=== PATIENT | female | born 1975 | race Caucasian/White ===

== ENCOUNTER → 2018-09-28 | Outpatient (CLI) | payer MEDICARE, OTHER ==
--- NOTE | 2018-09-29 08:39 | XR ---
Limited cervical spine HISTORY: Arthrodesis status, Z 98.1, postop pain with arm and hand numbness 3 views of the cervical spine No comparisons Metallic post is present through the tongue. Patient is status post anterior cervical fusion and disc ectomy as well as intervertebral disc replacement at C3-4, block placement at the level of C5 slightl y towards the left of midline. The metallic block extends from the inferior margin of C4 to the super ior margin of C6. There is some reversal of the normal cervical lordosis which is likely postoperativ e. Suspect there is an anterolisthesis at C5-6 although the posterior margin of C5 is not well-define d due to postop state. Anterior screws extend to the posterior margin of the vertebral bodies at C4 a nd C6. Anterior screws also present C3. Some loss of disc height present C6-7. Indeterminate crescent ic calcification present anterior to the C6 vertebral body extending to the C6-7 disc space level. IMPRESSION: Neurosurgical follow-up as described. Suspect listhesis is present, correlate with postop erative exam.
== END ==
LOC: RADXRMAIN 15:58
PROVIDERS: ATTEND Neurological Surgery
DX: Z09 Encounter for follow-up examination after completed treatment for conditions other than malignant neoplasm (principal); Z98.1 Arthrodesis status
CPT/HCPCS: 72040

== ENCOUNTER 2018-11-30 00:24 | Emergency (ER) | payer MEDICARE, OTHER ==
--- NOTE | 2018-11-30 01:26 | XR ---
EXAM: XR Chest, 2 Views CLINICAL HISTORY: Pain TECHNIQUE: Frontal and lateral views of the chest. COMPARISON: No relevant prior studies available. FINDINGS: Lungs: Unremarkable. No consolidation. Pleural space: Unremarkable. No pneumothorax. Heart: Unremarkable. No cardiomegaly. Mediastinum: Unremarkable. Bones/joints: Unremarkable. IMPRESSION: No acute abnormality
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
[2018-11-30 01:48] LABS: Basophils # (A) 0.1 k/uL (0-0.2); Basophils % (A) 1 %; Eosinophils # (A) 0.8 k/uL (0-0.7); Eosinophils % (A) 6 %; HCT 43.3 % (34.0-46.0); HGB 13.9 gm/dL (11.4-16.0); Lymphocytes # (A) 3.2 k/uL (1.0-4.8); Lymphocytes % (A) 25 %; MCH 28.8 pg (25.0-35.0); MCHC 32.1 g/dL (31.0-37.0); MCV 89.8 fL (80.0-100.0); Mean Platelet Volume 8.1; Monocytes # (A) 0.8 k/uL (0-1.0); Monocytes % (A) 6 %; Neutrophils # (A) 7.9 k/uL (1.3-7.7); Neutrophils % (A) 60 %; Platelet Count 275 k/uL (150-450); RBC 4.82 m/uL (3.80-5.40); RDW 14.3 % (11.5-15.5); WBC 13.2 k/uL (3.8-10.6)
[2018-11-30 01:53] LABS: ALT 25 U/L (9-52); AST 17 U/L (14-36); Alkaline Phosphatase 103 U/L (38-126); Anion Gap 10 mmol/L; Blood Urea Nitrogen 17 mg/dL (7-17); Calcium 8.9 mg/dL (8.4-10.2); Carbon Dioxide 23 mmol/L (22-30); Chloride 106 mmol/L (98-107); Glucose 97 mg/dL (74-99); Lipase 98 U/L (23-300); Potassium 3.8 mmol/L (3.5-5.1); Sodium 139 mmol/L (137-145); Total Bilirubin 0.3 mg/dL (0.2-1.3); Total Protein 7.3 g/dL (6.3-8.2)
[2018-11-30 02:02] LABS: D-Dimer 0.36 mg/L FEU (<0.60); INR 0.9 (<1.2); Prothrombin Time 9.4 sec (9.0-12.0)
[2018-11-30] MEDS ORDERED: HYDROcodone/APAP 5-325MG 1 EACH TAB PO STA (02:09)
[2018-11-30 02:26] LABS: Partial Thromboplastin Time 21.6 sec (22.0-30.0)
[2018-11-30 03:03] VITALS: RESP 18
[2018-11-30 04:15] VITALS: BP 143/103; PULSE 82; TEMP 98.1
== END 2018-11-30 03:48 | disposition home or self-care (01) ==
LOC: EC 00:24
DX: M54.12 Radiculopathy, cervical region (principal); R07.9 Chest pain, unspecified; D72.829 Elevated white blood cell count, unspecified; F17.200 Nicotine dependence, unspecified, uncomplicated; Z88.0 Allergy status to penicillin; Z88.2 Allergy status to sulfonamides; Z88.8 Allergy status to other drugs, medicaments and biological substances; Z86.73 Personal history of transient ischemic attack (TIA), and cerebral infarction without residual deficits; Z87.828 Personal history of other (healed) physical injury and trauma; Z98.890 Other specified postprocedural states; W10.9XXA Fall (on) (from) unspecified stairs and steps, initial encounter; Y93.01 Activity, walking, marching and hiking; Y92.009 Unspecified place in unspecified non-institutional (private) residence as the place of occurrence of the external cause
CPT/HCPCS: 36415; 71046; 80053; 83690; 83735; 84484; 85025; 85379; 85610; 85730; 93005; 99285

== ENCOUNTER 2019-04-05 12:53 | Emergency (ER) | payer OTHER ==
[2019-04-05 13:02] VITALS: RESP 18
[2019-04-05] MEDS ORDERED: SODIUM CHLORIDE 0.9% 1,000 ML IV STA (13:25)
[2019-04-05] MEDS ORDERED: ONDANSETRON 4 MG/2 ML VIAL IVP STA (13:25)
[2019-04-05] MEDS ORDERED: KETOROLAC 30 MG/ML 1 ML VIAL IVP STA (13:25)
[2019-04-05 13:51] LABS: ALT 6 U/L (9-52); AST 28 U/L (14-36); African American GFR (CKD) >90 (>60 ml/min/1.73 sqM); Albumin 4.1 g/dL (3.5-5.0); Alkaline Phosphatase 84 U/L (38-126); Anion Gap 8 mmol/L; Blood Urea Nitrogen 9 mg/dL (7-17); Calcium 8.8 mg/dL (8.4-10.2); Carbon Dioxide 20 mmol/L (22-30); Chloride 111 mmol/L (98-107); Glucose 119 mg/dL (74-99); Sodium 139 mmol/L (137-145); Total Bilirubin 0.7 mg/dL (0.2-1.3); Total Protein 7.6 g/dL (6.3-8.2)
[2019-04-05 13:54] LABS: Potassium 5.1 mmol/L (3.5-5.1)
[2019-04-05 13:55] LABS: Basophils # (A) 0.1 k/uL (0-0.2); Basophils % (A) 1 %; Eosinophils # (A) 0.8 k/uL (0-0.7); Eosinophils % (A) 9 %; HCT 43.2 % (34.0-46.0); HGB 14.2 gm/dL (11.4-16.0); Lymphocytes # (A) 2.8 k/uL (1.0-4.8); Lymphocytes % (A) 29 %; MCH 28.3 pg (25.0-35.0); MCHC 32.8 g/dL (31.0-37.0); MCV 86.2 fL (80.0-100.0); Mean Platelet Volume 8.4; Monocytes # (A) 0.5 k/uL (0-1.0); Monocytes % (A) 5 %; Neutrophils # (A) 5.2 k/uL (1.3-7.7); Neutrophils % (A) 55 %; Platelet Count 237 k/uL (150-450); RBC 5.01 m/uL (3.80-5.40); RDW 14.5 % (11.5-15.5); WBC 9.4 k/uL (3.8-10.6)
--- NOTE | 2019-04-05 14:31 | ED ---
Female Urogenital HPI - General Chief complaint: Vaginal Bleeding Stated complaint: Abd.pain Time Seen by Provider: 04/05/19 13:04 Source: patient Mode of arrival: ambulatory Limitations: no limitations - History of Present Illness Initial comments: Patient is a 43-year-old female presenting to the emergency room with complaints of right lower quadrant pain that has been increasing over the last 2 weeks. Patient also admits to associated nausea and vomiting secondary to the pain. Patient states the pain has been increasing over the past 2-3 weeks the last 2 days has been terrible. Patient states she has a history of clips on her fallopian tubes. Patient states she is currently on her period which is a lot more heavier and painful than normal. Patient states she took them at home test 2 weeks ago which she stated was positive however patient states she has not had intercourse in over a month. Patient denies fever, chills, diar juanjose, chest pain, shortness of breath, urinary symptoms. Patient denies any other complaints at this time. - Related Data Home Medications Medication Instructions Recorded Confirmed Albuterol Sulfate [Proair Hfa] 2 puff INHALATION RT-Q4H PRN 04/05/19 04/05/19 Cyclobenzaprine HCl 10 mg PO TID PRN 04/05/19 04/05/19 Omeprazole 40 mg PO DAILY 04/05/19 04/05/19 Previous Rx's Medication Instructions Recorded Ketorolac [Toradol] 10 mg PO Q8HR #15 tab 04/05/19 Ondansetron Odt [Zofran Odt] 4 mg PO Q8HR PRN #10 tab 04/05/19 Allergies Allergy/AdvReac Type Severity Reaction Status Date / Time adhesive tape Allergy Rash/Hives Verified 04/05/19 13:38 amoxicillin Allergy Unknown Verified 04/05/19 13:38 bee venom protein (honey bee) Allergy Unknown Verified 04/05/19 13:38 erythromycin base Allergy Unknown Verified 04/05/19 13:38 Penicillins Allergy Swelling Verified 04/05/19 13:38 sertraline [From Zoloft] Allergy Rapid Verified 04/05/19 13:38 Heart Rate shellfish derived [Shellfish] Allergy Unknown Verified 04/05/19 13:38 Sulfa (Sulfonamide Allergy Swelling Verified 04/05/19 13:38 Antibiotics) Review of Systems ROS Statement: Those systems with pertinent positive or pertinent negative responses have been documented in the HPI. ROS Other: All systems not noted in ROS Statement are negative. Past Medical History Past Medical History: Asthma, CVA/TIA, Fibromyalgia, GERD/Reflux, Hypertension Additional Past Medical History / Comment(s): chronic pain, stomach ulcers, History of Any Multi-Drug Resistant Organisms: None Reported Past Surgical History: Section, Cholecystectomy, Orthopedic Surgery, Tonsillectomy Additional Past Surgical History / Comment(s): neck,left hand Past Psychological History: Anxiety Smoking Status: Current every day smoker Past Alcohol Use History: None Reported Past Drug Use History: Marijuana General Exam - General Exam Comments Initial Comments: GENERAL: Well-appearing, well-nourished and in no acute distress. HEAD: Atraumatic, normocephalic. EYES: Pupils equal round and reactive to light, extraocular movements intact, sclera anicteric, conjunctiva are normal. ENT: TMs normal, nares patent, oropharynx clear without exudates. Moist mucous membranes. NECK: Normal range of motion, supple without lymphadenopathy or JVD. LUNGS: Breath sounds clear to auscultation bilaterally and equal. No wheezes rales or rhonchi. HEART: Regular rate and rhythm without murmurs, rubs or gallops. ABDOMEN: Pain with palpation of the lower right quadrant and into right groin area. Soft, normoactive bowel sounds. No guarding, no rebound. No masses appreciated. : Deferred EXTREMITIES: Normal range of motion, no pitting or edema. No clubbing or cyanosis. NEUROLOGICAL: Cranial nerves II through XII grossly intact. Normal speech, normal gait. PSYCH: Normal mood, normal affect. SKIN: Warm, Dry, normal turgor, no rashes or lesions noted. Limitations: no limitations Course Vital Signs 04/05/19 04/05/19 04/05/19 12:59 14:44 17:35 Temperature 98.2 F 98.4 F Pulse Rate 129 H 61 74 Respiratory 18 18 18 Rate Blood Pressure 120/88 113/71 121/94 O2 Sat by Pulse 97 97 98 Oximetry Medical Decision Making - Medical Decision Making Patient is a 43-year-old female with complaints of right lower quadrant pain increasing over the last 2-3 weeks. Patient has history of fallopian tube clips. On exam patient has tenderness of her right lower quadrant and into right groin area. Patient has positive nausea and vomiting as well. CBC, CMP, UA are all within normal limits. Patient is not Ultrasound was obtained and states exam is limited due to overlying bowel gas. The right left ovary is obscured. Patient continued to have pain after Toradol and Zofran. Patient was given 4 morphine. Patient continued to cry and moan in pain. After discussing findings with patient, a CT of the abdomen and pelvis was ordered with contrast. Contrast shows no sign of acute abdomen, no sign of appendicitis, no free fluid in the pelvic area. These findings were discussed with the patient at length. Patient was still crying and moaning in pain. Patient did admit that she used to be on pain medication for her neck pain and was completely cut off about a month ago when her symptoms began. Discussed with patient that this could be related to her menstrual cycle and/or gas pains. Patient was given referral for PCP and [facility] CONS[facility]. Patient will follow-up with them in the next few days. Patient was given Zofran and Motrin for pain relief. Patient is in agreement with this plan. Return parameters were discussed with patient and she verbalized understanding. Case was discussed with Dr. Melvin. - Lab Data Result diagrams: 04/05/19 13:34 04/05/19 13:34 Lab Results 04/05/19 04/05/19 04/05/19 Range/Units 13:34 13:34 14:03 WBC 9.4 (3.8-10.6) k/uL RBC 5.01 (3.80-5.40) m/uL Hgb 14.2 (11.4-16.0) gm/dL Hct 43.2 (34.0-46.0) % MCV 86.2 (80.0-100.0) fL MCH 28.3 (25.0-35.0) pg MCHC 32.8 (31.0-37.0) g/dL RDW 14.5 (11.5-15.5) % Plt Count 237 (150-450) k/uL Neutrophils % 55 % Lymphocytes % 29 % Monocytes % 5 % Eosinophils % 9 % Basophils % 1 % Neutrophils # 5.2 (1.3-7.7) k/uL Lymphocytes # 2.8 (1.0-4.8) k/uL Monocytes # 0.5 (0-1.0) k/uL Eosinophils # 0.8 H (0-0.7) k/uL Basophils # 0.1 (0-0.2) k/uL Sodium 139 (137-145) mmol/L Potassium 5.1 (3.5-5.1) mmol/L Chloride 111 H (98-107) mmol/L Carbon Dioxide 20 L (22-30) mmol/L Anion Gap 8 mmol/L BUN 9 (7-17) mg/dL Creatinine 0.72 (0.52-1.04) mg/dL Est GFR (CKD-EPI)AfAm >90 (>60 ml/min/1.73 sqM) Est GFR (CKD-EPI)NonAf >90 (>60 ml/min/1.73 sqM) Glucose 119 H (74-99) mg/dL Calcium 8.8 (8.4-10.2) mg/dL Total Bilirubin 0.7 (0.2-1.3) mg/dL AST 28 (14-36) U/L ALT 6 L (9-52) U/L Alkaline Phosphatase 84 (38-126) U/L Total Protein 7.6 (6.3-8.2) g/dL Albumin 4.1 (3.5-5.0) g/dL Urine Color Urine Appearance (Clear) Urine pH (5.0-8.0) Ur Specific Soldier (1.001-1.035) Urine Protein (Negative) Urine Glucose (UA) (Negative) Urine Ketones (Negative) Urine Blood (Negative) Urine Nitrite (Negative) Urine Bilirubin (Negative) Urine Urobilinogen (<2.0) mg/dL Ur Leukocyte Esterase (Negative) Urine RBC (0-5) /hpf Urine WBC (0-5) /hpf Ur Squamous Epith Cells (0-4) /hpf Urine Bacteria (None) /hpf Urine Mucus (None) /hpf Urine HCG, Qual Not Detected (Not Detectd) 04/05/19 Range/Units 14:03 WBC (3.8-10.6) k/uL RBC (3.80-5.40) m/uL Hgb (11.4-16.0) gm/dL Hct (34.0-46.0) % MCV (80.0-100.0) fL MCH (25.0-35.0) pg MCHC (31.0-37.0) g/dL RDW (11.5-15.5) % Plt Count (150-450) k/uL Neutrophils % % Lymphocytes % % Monocytes % % Eosinophils % % Basophils % % Neutrophils # (1.3-7.7) k/uL Lymphocytes # (1.0-4.8) k/uL Monocytes # (0-1.0) k/uL Eosinophils # (0-0.7) k/uL Basophils # (0-0.2) k/uL Sodium (137-145) mmol/L Potassium (3.5-5.1) mmol/L Chloride (98-107) mmol/L Carbon Dioxide (22-30) mmol/L Anion Gap mmol/L BUN (7-17) mg/dL Creatinine (0.52-1.04) mg/dL Est GFR (CKD-EPI)AfAm (>60 ml/min/1.73 sqM) Est GFR (CKD-EPI)NonAf (>60 ml/min/1.73 sqM) Glucose (74-99) mg/dL Calcium (8.4-10.2) mg/dL Total Bilirubin (0.2-1.3) mg/dL AST (14-36) U/L ALT (9-52) U/L Alkaline Phosphatase (38-126) U/L Total Protein (6.3-8.2) g/dL Albumin (3.5-5.0) g/dL Urine Color Light Yellow Urine Appearance Clear (Clear) Urine pH 6.0 (5.0-8.0) Ur Specific Soldier 1.005 (1.001-1.035) Urine Protein Negative (Negative) Urine Glucose (UA) Negative (Negative) Urine Ketones Negative (Negative) Urine Blood Moderate H (Negative) Urine Nitrite Negative (Negative) Urine Bilirubin Negative (Negative) Urine Urobilinogen <2.0 (<2.0) mg/dL Ur Leukocyte Esterase Negative (Negative) Urine RBC 1 (0-5) /hpf Urine WBC 1 (0-5) /hpf Ur Squamous Epith Cells <1 (0-4) /hpf Urine Bacteria Rare H (None) /hpf Urine Mucus Rare H (None) /hpf Urine HCG, Qual (Not Detectd) Disposition Clinical Impression: Abdominal pain Disposition: HOME SELF-CARE Condition: Stable Instructions (If sedation given, give patient instructions): Abdominal Pain (ED) Additional Instructions: Please return to the Emergency Department if symptoms worsen or any other concerns. Follow-up with PCP and/or [facility]. Prescriptions: Ketorolac [Toradol] 10 mg PO Q8HR #15 tab Ondansetron Odt [Zofran Odt] 4 mg PO Q8HR PRN #10 tab PRN Reason: Nausea Is patient prescribed a controlled substance at d/c from ED?: No Referrals: None,Stated [Primary Care Provider] - 1-2 days Jaydon Lozano DO [Doctor of Osteopathic Medicine] - 1-2 days Macy Turk MD [STAFF PHYSICIAN] - 1-2 days
--- NOTE | 2019-04-05 14:55 | US ---
EXAMINATION TYPE: US transvaginal DATE OF EXAM: 04/05/2019 COMPARISON: NONE CLINICAL HISTORY: Pain. pain TECHNIQUE: Transvaginal (TV). Date of LMP: 03/13/2019 EXAM MEASUREMENTS: Uterus: 8.5 x 4.0 x cm Endometrial Stripe: 0.5 cm 1. Uterus: Anteverted Nabothian cysts seen. 2. Endometrium: Small echogenic foci seen are indeterminate. 3. Right Ovary: Obscured by overlying bowel gas 4. Left Ovary: Obscured by overlying bowel gas 5. Bilateral Adnexa: wnl 6. Posterior cul-de-sac: wnl IMPRESSION: Exam is limited. Small nabothian cysts are seen within the cervical region. Small indeter minant echoes along the endometrium.
[2019-04-05] MEDS ORDERED: MORPHINE SULFATE 4 MG/ML SYRINGE IVP STA (15:28)
[2019-04-05 16:16] LABS: Appearance,Urine Clear (Clear); Bacteria,Urine Rare /hpf; Bilirubin,Urine Negative (Negative); Blood,Urine Moderate (Negative); Color,Urine Light Yellow; Glucose,Urine (UA) Negative (Negative); Ketones,Urine Negative (Negative); Leukocyte Esterase,Urine Negative (Negative); Mucus,Urine Rare /hpf; Nitrite,Urine Negative (Negative); Protein,Urine Negative (Negative); RBC,Urine 1 /hpf (0-5); Specific Gravity,Urine 1.005 (1.001-1.035); Squamous Epithelial Cell,Urine <1 /hpf (0-4); Urobilinogen,Urine <2.0 mg/dL (<2.0)
--- NOTE | 2019-04-05 17:33 | CT ---
EXAMINATION TYPE: CT abdomen pelvis w con DATE OF EXAM: 04/05/2019 COMPARISON: None HISTORY: RLQ pain, nausea CT DLP: 1615.4 mGycm Automated exposure control for dose reduction was used. TECHNIQUE: Helical acquisition of images was performed from the lung bases through the pelvis. CONTRAST: Performed without Oral Contrast and with IV Contrast, patient injected with 100 mL of Isovue 300. FINDINGS: Lung bases are clear. There is no pleural effusion. Heart size is normal. Liver spleen stomach pancreas appear normal. Bile ducts are not dilated. There are clips from cholecy stectomy. There is no adrenal mass. Kidneys show satisfactory contrast opacification. There is no hydronephrosi s. There is no retroperitoneal adenopathy. Ureters are not dilated. Bladder distends smoothly. Uterus is anteverted. There is no free fluid in the pelvis. There is spond ylosis at L5-S1 with vacuum disc and spur formation. Sacroiliac joints appear intact. There is no varun dence of a pelvic mass. Appendix is not thickened. I see no evidence of a bowel obstruction. There is no free air. There is no ascites. There is no mesenteric edema. There is posterior disc bulging at L 4-5. There are multiple phleboliths in the pelvis. IMPRESSION: NO SIGN OF ACUTE ABDOMEN AND PELVIS. NO SIGN OF APPENDICITIS. NO FREE FLUID. NO PELVIC MASS.
[2019-04-05 17:36] VITALS: BP 121/94; PULSE 74; TEMP 98.4
== END 2019-04-05 18:22 | disposition home or self-care (01) ==
LOC: EC 12:53
DX: R10.31 Right lower quadrant pain (principal); R11.2 Nausea with vomiting, unspecified; J45.909 Unspecified asthma, uncomplicated; K21.9 Gastro-esophageal reflux disease without esophagitis; F17.200 Nicotine dependence, unspecified, uncomplicated; Z86.73 Personal history of transient ischemic attack (TIA), and cerebral infarction without residual deficits; Z79.899 Other long term (current) drug therapy; Z88.0 Allergy status to penicillin; Z88.1 Allergy status to other antibiotic agents; Z88.2 Allergy status to sulfonamides; Z91.013 Allergy to seafood; Z91.048 Other nonmedicinal substance allergy status; Z91.030 Bee allergy status; Z88.8 Allergy status to other drugs, medicaments and biological substances
CPT/HCPCS: 36415; 80053; 85025; 81001; 81025; 76830; 74177; 99284; 96374; 96375 ×2; 96361; J2270; J2405; J1885; Q9967

== ENCOUNTER 2019-07-27 10:37 | Emergency (ER) | payer MEDICARE, OTHER ==
[2019-07-27 10:48] VITALS: RESP 18; TEMP 97.9
[2019-07-27] MEDS ORDERED: DIAZEPAM 5 MG/ML 2 ML INJ IM STA (11:01)
[2019-07-27] MEDS ORDERED: KETOROLAC 60 MG/2 ML VIAL IM STA (11:01)
--- NOTE | 2019-07-27 11:04 | ED ---
Fall HPI - General Chief Complaint: Fall Stated Complaint: chest/neck/arm pain Time Seen by Provider: 07/27/19 10:41 Source: patient, RN notes reviewed, old records reviewed Mode of arrival: ambulatory - History of Present Illness Initial Comments: Patient is a 44-year-old female presents emergency department today for evaluation for chief complaint of falling to the stairs approximately one week ago. Patient reports that she went head over heels. Patient states that she started to develop some severe neck pain and shoulder pain and cramping sensation the past 3 days. Patient reportedly since the past day has not been able to fully lift up her arm. She reports it feels like a charley horse and cramping within her neck and shoulder and arm. Patient denies any chest pain or shortness of breath or abdominal pain. She denies any lower extremity pain. Patient reports that she feels that her left arm is weaker have due to a pinched nerve in her neck post fall. - Related Data Home Medications Medication Instructions Recorded Confirmed Albuterol Sulfate [Proair Hfa] 2 puff INHALATION RT-Q4H PRN 04/05/19 07/27/19 Cyclobenzaprine HCl 10 mg PO TID PRN 04/05/19 07/27/19 Pregabalin [Lyrica] 300 mg PO TID PRN 07/27/19 07/27/19 Previous Rx's Medication Instructions Recorded Acetaminophen-Codeine 300-30mg 1 tab PO Q4H PRN 3 Days #18 tablet 07/27/19 [Tylenol w/codeine #3] Dexamethasone 0.75 mg PO DAILY #12 tab 07/27/19 Ibuprofen 600 mg PO TID #20 tablet 07/27/19 Orphenadrine [Norflex] 100 mg PO Q12H #10 tablet.er 07/27/19 Allergies Allergy/AdvReac Type Severity Reaction Status Date / Time adhesive tape Allergy Rash/Hives Verified 07/27/19 11:21 amoxicillin Allergy Unknown Verified 07/27/19 11:21 bee venom protein (honey bee) Allergy Unknown Verified 07/27/19 11:21 erythromycin base Allergy Unknown Verified 07/27/19 11:21 Penicillins Allergy Swelling Verified 07/27/19 11:21 sertraline [From Zoloft] Allergy Rapid Verified 07/27/19 11:21 Heart Rate shellfish derived [Shellfish] Allergy Unknown Verified 07/27/19 11:21 Sulfa (Sulfonamide Allergy Swelling Verified 07/27/19 11:21 Antibiotics) Review of Systems ROS Statement: Those systems with pertinent positive or pertinent negative responses have been documented in the HPI. ROS Other: All systems not noted in ROS Statement are negative. Past Medical History Past Medical History: Asthma, CVA/TIA, Fibromyalgia, GERD/Reflux, Hypertension Additional Past Medical History / Comment(s): chronic pain, stomach ulcers, History of Any Multi-Drug Resistant Organisms: None Reported Past Surgical History: Section, Cholecystectomy, Orthopedic Surgery, Tonsillectomy Additional Past Surgical History / Comment(s): neck,left hand Past Psychological History: Anxiety Smoking Status: Current every day smoker Past Alcohol Use History: None Reported Past Drug Use History: Marijuana General Exam - General Exam Comments Initial Comments: This is a 44-year-old female. Patient is anxious, tearful. Limitations: no limitations General appearance: alert, in no apparent distress Head exam: Present: atraumatic, normocephalic, normal inspection Eye exam: Present: normal appearance, PERRL, EOMI. Absent: scleral icterus, conjunctival injection, periorbital swelling ENT exam: Present: normal exam, normal oropharynx, mucous membranes moist Neck exam: Present: normal inspection, tenderness (Has vertebral neck tenderness, spasming over bilateral trapezius muscle. Tenderness over the deltoid and clavicle. Some muscle spasm ). Absent: meningismus, lymphadenopathy Respiratory exam: Present: normal lung sounds bilaterally. Absent: respiratory distress, wheezes, rales, rhonchi, stridor Cardiovascular Exam: Present: regular rate, normal rhythm, normal heart sounds. Absent: systolic murmur, diastolic murmur, rubs, gallop, clicks GI/Abdominal exam: Present: soft Extremities exam: Present: normal inspection, full ROM, normal capillary refill. Absent: tenderness, pedal edema, joint swelling, calf tenderness Left Shoulder Exam: Present: normal inspection, full ROM, tenderness ( is some tenderness over the left deltoid shoulder.) Upper Arm exam: Present: normal inspection, full ROM Back exam: Present: normal inspection Neurological exam: Present: alert, oriented X3, CN II-XII intact Psychiatric exam: Present: normal affect, normal mood Course Vital Signs 07/27/19 10:45 Temperature 97.9 F Pulse Rate 99 Respiratory 18 Rate Blood Pressure 155/94 O2 Sat by Pulse 98 Oximetry Medical Decision Making - Medical Decision Making Is a 44-year-old female, she presents today for complaints of shoulder pain in her left arm and spasming and neck pain. Symptoms started 3 days ago. She states that one week ago she fell on the stairs head over heel. She has a history of surgery on her neck. This was done at [facility] year ago and she is now followed up with the pain specialist closer to here. Patient has had no specific fevers or chills or any other complaints. She does have some pain with range of motion of her head, consider possible rotator cuff injury. Computed tomography scan of the brain and C-spine are completed this is negative for any acute process, there is evidence of postsurgical change which is difficult to fully visualize however no signs of fracture or malalignment of hardware. There is some straightening concern versus spasm. Patient given IM muscle relaxers pain medication does have some improvement. I discussed the Patient would benefit from following up with transportation equipment painter, and put the Patient on short course of pain medication muscle relaxers. Discussed return parameters and following up with [place] her concern for rotator cuff injury as well. All questions were answered return parameters were discussed. - Radiology Data Radiology results: report reviewed Marked limitation evaluation for the cervical spine post surgical level is metallic device from prior corpectomy from C4 through C6 with extensive spray artifact. Its overall remain in line. No gross evidence of fracture. Straightening of the cervical lordosis may relate to positioning or muscle spasm. No drainage or cranial hemorrhage or mass effect or midline shift is seen. Shoulder x-ray shows no acute fracture or dislocation. Disposition Clinical Impression: Fall, Cervical muscle strain, Muscle spasm, Rotator cuff disorder Disposition: ADMITTED IP TO THIS HOSP Condition: Stable Instructions (If sedation given, give patient instructions): Rotator Cuff Injury (ED), Cervical Strain (ED) Additional Instructions: Patient can wear the sling for support of your shoulder and arm. Follow-up with pain management specialty and orthopedics. Return to the emergency department if any alarming signs or symptoms occur. Prescriptions: Dexamethasone 0.75 mg PO DAILY #12 tab Ibuprofen 600 mg PO TID #20 tablet Orphenadrine [Norflex] 100 mg PO Q12H #10 tablet.er Acetaminophen-Codeine 300-30mg [Tylenol w/codeine #3] 1 tab PO Q4H PRN 3 Days #18 tablet PRN Reason: Pain Is patient prescribed a controlled substance at d/c from ED?: Yes If prescribed controlled substance>3 days was MAPS reviewed?: Prescribed <3 Days If opioid is for acute pain is fill amount 7 days or less?: Yes If Rx opioid, was Start Talking consent form obtained?: Yes Referrals: None,Stated [Primary Care Provider] - 1-2 days Reena Freitas, [Doctor of Osteopathic Medicine] - 1-2 days Papo Castro MD [STAFF PHYSICIAN] - 1-2 days Time of Disposition: 13:14
--- NOTE | 2019-07-27 11:53 | XR ---
Left shoulder HISTORY: Trauma and pain 3 views of the left shoulder, comparison to chest x-ray 11/30/2018 Bone mineralization, joint spaces, alignment are maintained. Mild irregularity of the left acromion s hows a stable appearance. Left lung apex as visualized is normal. Snaps are present in the frontal vi ew over the left chest. IMPRESSION: No acute fracture or dislocation.
--- NOTE | 2019-07-27 12:05 | CT ---
EXAMINATION TYPE: CT brain francis cali DATE OF EXAM: 07/27/2019 COMPARISON: NONE HISTORY: fell down stairs, head and neck pain. History of cervical spine surgery. CT DLP: 1789 mGycm. Automated Exposure Control for Dose Reduction was Utilized. TECHNIQUE: CT scan of the head and cervical spine are performed without contrast. FINDINGS: There is no acute intracranial hemorrhage, mass effect, or midline shift identified. No s uspicious extra-axial fluid collection. The ventricles and sulci are within normal limits in size. T he globes are intact. There is mild mucosal thickening in the maxillary and ethmoid sinuses. Remainin g paranasal sinuses and mastoid air cells are well aerated. Calvarium appears intact. Incidentally no maria esther low-lying cerebellar tonsils with 1 mm ectopia. Anterior cervical fusion device and surgical fusion of the vertebral bodies is seen from C3 through C 6. Intervertebral disc space narrowing seen at C3-C4 and fusion with metallic device from C4 through C6 creating spray artifact and severely limiting direct visualization. Facets remain aligned. No vert ebral body height loss of the upper thoracic spine or of C2. Narrowing of the atlantodental interval is seen. Spinous processes appear grossly intact. No abnormal prevertebral soft tissue swelling is gr ossly seen. IMPRESSION: 1. Marked limitation in evaluation of the cervical spine at the postsurgical levels as there is a met allic device from prior corpectomy from C4 through C6 creating extensive spray artifact. Facets overa ll remain aligned. No gross evidence of fracture. Straightening of usual cervical lordosis may relate to positioning or muscular strain/spasm. 2. No acute intracranial hemorrhage, mass effect, or midline shift is seen.
[2019-07-27] MEDS ORDERED: HYDROmorphone 1 MG/ML 1 ML SYRINGE IM STA (13:06)
[2019-07-27 13:54] VITALS: BP 150/93; PULSE 78
== END 2019-07-27 14:04 | disposition other institution (70) ==
LOC: EC 10:37
DX: S16.1XXA Strain of muscle, fascia and tendon at neck level, initial encounter (principal); M67.912 Unspecified disorder of synovium and tendon, left shoulder; M62.830 Muscle spasm of back; J45.909 Unspecified asthma, uncomplicated; F17.200 Nicotine dependence, unspecified, uncomplicated; Z91.048 Other nonmedicinal substance allergy status; Z88.0 Allergy status to penicillin; Z91.030 Bee allergy status; Z88.8 Allergy status to other drugs, medicaments and biological substances; Z91.013 Allergy to seafood; Z88.2 Allergy status to sulfonamides; Z86.73 Personal history of transient ischemic attack (TIA), and cerebral infarction without residual deficits; W10.9XXA Fall (on) (from) unspecified stairs and steps, initial encounter
CPT/HCPCS: 73030; 72125; 70450; 99285; 96372 ×3; J3360; J1885; J1170

== ENCOUNTER 2019-09-25 03:06 | Emergency (ER) | payer MEDICARE, OTHER ==
[2019-09-25 03:17] VITALS: BP 164/89; PULSE 103; RESP 20; TEMP 98.7
--- NOTE | 2019-09-25 04:04 | ED ---
Neck Injury/Pain HPI - General Chief Complaint: Neck Pain/Injury Stated Complaint: Left shoulder pain Time Seen by Provider: 09/25/19 03:57 Mode of arrival: ambulatory Limitations: no limitations - History of Present Illness Initial Comments: Cynthia is a 44 yo female who presents to the emergency department today for evaluation of exacerbation of her chronic left shoulder pain. 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 Due to insurance problems patient has not been able to get her Lyrica and has not been able to follow up with pain management. Patient presents to ER today with exacerbation of her chronic pain. No acute injuries. No chest pain palpitations shortness of breath lightheadedness diaphoresis. - Related Data Home Medications Medication Instructions Recorded Confirmed Albuterol Sulfate [Proair Hfa] 2 puff INHALATION RT-Q4H PRN 04/05/19 07/27/19 RX: Cyclobenzaprine HCl 10 mg PO TID PRN 04/05/19 07/27/19 Pregabalin [Lyrica] 300 mg PO TID PRN 07/27/19 07/27/19 Previous Rx's Medication Instructions Recorded Acetaminophen-Codeine 300-30mg 1 tab PO Q4H PRN 3 Days #18 tablet 07/27/19 [Tylenol w/codeine #3] Orphenadrine [Norflex] 100 mg PO Q12H #10 tablet.er 07/27/19 RX: Dexamethasone 0.75 mg PO DAILY #12 tab 07/27/19 RX: Ibuprofen 600 mg PO TID #20 tablet 07/27/19 Diclofenac Sodium Gel [Voltaren 2 gm TOPICAL QID #1 tube 09/25/19 Gel] Lidocaine 5% Patch [Lidoderm] 1 patch TOPICAL DAILY #30 patch 09/25/19 Orphenadrine [Norflex] 100 mg PO Q12H #30 tablet.er 09/25/19 Allergies Allergy/AdvReac Type Severity Reaction Status Date / Time adhesive tape Allergy Rash/Hives Verified 09/25/19 03:16 amoxicillin Allergy Unknown Verified 09/25/19 03:16 bee venom protein (honey bee) Allergy Unknown Verified 09/25/19 03:16 erythromycin base Allergy Unknown Verified 09/25/19 03:16 Penicillins Allergy Swelling Verified 09/25/19 03:16 sertraline [From Zoloft] Allergy Rapid Verified 09/25/19 03:16 Heart Rate shellfish derived [Shellfish] Allergy Unknown Verified 09/25/19 03:16 Sulfa (Sulfonamide Allergy Swelling Verified 09/25/19 03:16 Antibiotics) Review of Systems ROS Statement: Those systems with pertinent positive or pertinent negative responses have been documented in the HPI. ROS Other: All systems not noted in ROS Statement are negative. Past Medical History Past Medical History: Asthma, CVA/TIA, Fibromyalgia, GERD/Reflux, Hypertension Additional Past Medical History / Comment(s): chronic pain, stomach ulcers, History of Any Multi-Drug Resistant Organisms: None Reported Past Surgical History: Section, Cholecystectomy, Orthopedic Surgery, Tonsillectomy Additional Past Surgical History / Comment(s): neck,left hand Past Psychological History: Anxiety Smoking Status: Current every day smoker Past Alcohol Use History: None Reported Past Drug Use History: Marijuana General Exam - General Exam Comments Initial Comments: Physical Exam GENERAL: Patient is well-developed and well-nourished. Patient is nontoxic and well- hydrated and is in no distress. HENT: Normocephalic, Atraumatic. EYES: PERRL, EOMI PULMONARY: Unlabored respirations. No audible rales rhonchi or wheezing was noted. CARDIOVASCULAR: There is a regular rate and rhythm without any murmurs gallops or rubs. ABDOMEN: Soft and nontender with normal bowel sounds. SKIN: Skin is clear with no lesions or rashes and otherwise unremarkable. : Deferred NEUROLOGIC: Patient is alert and oriented x3. Moving all extremities spontaneously MUSCULOSKELETAL: Hypertonicity of left trapezius muscle with tenderness to palpation Normal extremities with adequate strength and full range of motion. No lower extremity swelling or edema. No calf tenderness. PSYCHIATRIC: Normal psychiatric evaluation. Limitations: no limitations Course Vital Signs 09/25/19 03:13 Temperature 98.7 F Pulse Rate 103 H Respiratory 20 Rate Blood Pressure 164/89 O2 Sat by Pulse 97 Oximetry Medical Decision Making - Medical Decision Making The patient was seen and evaluated history is obtained from patient, patient has acute on chronic left shoulder pain with radiation and radiculopathy down her left arm. She having exacerbation of her pain secondary to inability to get her medications due to insurance problems. Patient was treated with Norflex IM, Lidoderm patch and Toradol. Upon reevaluation patient reports she is very comfortable and like to be discharged home. Disposition Clinical Impression: Cervical radiculopathy Disposition: HOME SELF-CARE Condition: Stable Instructions (If sedation given, give patient instructions): Shoulder Sprain (ED) Prescriptions: Lidocaine 5% Patch [Lidoderm] 1 patch TOPICAL DAILY #30 patch Orphenadrine [Norflex] 100 mg PO Q12H #30 tablet.er Diclofenac Sodium Gel [Voltaren Gel] 2 gm TOPICAL QID #1 tube Is patient prescribed a controlled substance at d/c from ED?: No Referrals: None,Stated [Primary Care Provider] - 1-2 days
[2019-09-25] MEDS ORDERED: KETOROLAC 30 MG/ML 1 ML VIAL IM STA (04:05)
[2019-09-25] MEDS ORDERED: ORPHENADRINE 30 MG/ML 2 ML VIAL IM STA (04:05)
[2019-09-25] MEDS ORDERED: LIDOCAINE 5% PATCH TOPICAL STA (04:06)
== END 2019-09-25 05:22 | disposition home or self-care (01) ==
LOC: EC 03:06
DX: M54.12 Radiculopathy, cervical region (principal); J45.909 Unspecified asthma, uncomplicated; I10 Essential (primary) hypertension; F17.200 Nicotine dependence, unspecified, uncomplicated; Z91.048 Other nonmedicinal substance allergy status; Z88.0 Allergy status to penicillin; Z91.030 Bee allergy status; Z88.1 Allergy status to other antibiotic agents; Z88.8 Allergy status to other drugs, medicaments and biological substances; Z88.2 Allergy status to sulfonamides; Z91.013 Allergy to seafood; Z86.73 Personal history of transient ischemic attack (TIA), and cerebral infarction without residual deficits
CPT/HCPCS: 99283; 96372 ×2; J2360; J1885

== ENCOUNTER 2019-09-28 17:41 | Emergency (ER) | payer MEDICARE, OTHER ==
[2019-09-28] MEDS ORDERED: KETOROLAC 30 MG/ML 1 ML VIAL IM STA (18:52)
[2019-09-28] MEDS ORDERED: MORPHINE SULFATE 4 MG/ML SYRINGE IM STA (18:52)
[2019-09-28] MEDS ORDERED: ONDANSETRON 4 MG ODT STARTER PACK 2 TAB BTL PO STA (18:53)
[2019-09-28] MEDS ORDERED: predniSONE 50 MG TAB PO STA (18:54)
--- NOTE | 2019-09-28 18:56 | ED ---
Upper Extremity HPI - General Chief Complaint: Extremity Injury, Upper Stated Complaint: shoulder & neck pain-revisit Time Seen by Provider: 09/28/19 18:35 Source: patient Mode of arrival: ambulatory Limitations: no limitations - History of Present Illness Initial Comments: 44-year-old female patient presents to the emergency department today for evaluation of left shoulder and arm pain. Patient states she has had this pain chronically for quite some time. Patient states she did fall down the stairs in the past and injured her rotator cuff lower extremity. He states it does have been worse over the last 5 days. She is reporting pain radiating from her neck down her arm. She is reporting pins and needle sensation to the arm. States this morning she was having difficulty moving the wrist. She denies any new injury. States that she is seeing a neurosurgeon who ordered MRI and computed tomography scan. She has not had this test done yet. She does not have transportation to get to his office is unable to get any pain control medications states she has been taking Norflex and ibuprofen without relief. She was seen and evaluated at [facility] on September 22 and was given a short prescription for Orla. Patient states when she was taking 2 at a time and did seem to help. Patient denies any recent rash, fever, chills, shortness breath, chest pain, abdominal pain, nausea, vomiting, diarrhea, constipation, back pain, dizziness, weakness, hematuria, dysuria, urinary urgency, urinary frequency, headache, visual changes, or any other complaints. - Related Data Home Medications Medication Instructions Recorded Confirmed Albuterol Sulfate [Proair Hfa] 2 puff INHALATION RT-Q4H PRN 04/05/19 07/27/19 Cyclobenzaprine HCl 10 mg PO TID PRN 04/05/19 07/27/19 Pregabalin [Lyrica] 300 mg PO TID PRN 07/27/19 07/27/19 Previous Rx's Medication Instructions Recorded Acetaminophen-Codeine 300-30mg 1 tab PO Q4H PRN 3 Days #18 tablet 07/27/19 [Tylenol w/codeine #3] Dexamethasone 0.75 mg PO DAILY #12 tab 07/27/19 Ibuprofen 600 mg PO TID #20 tablet 07/27/19 Orphenadrine [Norflex] 100 mg PO Q12H #10 tablet.er 07/27/19 Diclofenac Sodium Gel [Voltaren 2 gm TOPICAL QID #1 tube 09/25/19 Gel] Lidocaine 5% Patch [Lidoderm] 1 patch TOPICAL DAILY #30 patch 09/25/19 Orphenadrine [Norflex] 100 mg PO Q12H #30 tablet.er 09/25/19 Gabapentin [Neurontin] 300 mg PO BID #14 cap 09/28/19 Hydrocodone/Acetaminophen [Orla 1 tab PO Q6H PRN 3 Days #12 tab 09/28/19 10-325] predniSONE 50 mg PO DAILY #5 tab 09/28/19 Allergies Allergy/AdvReac Type Severity Reaction Status Date / Time adhesive tape Allergy Rash/Hives Verified 09/28/19 18:29 amoxicillin Allergy Unknown Verified 09/28/19 18:29 bee venom protein (honey bee) Allergy Unknown Verified 09/28/19 18:29 erythromycin base Allergy Unknown Verified 09/28/19 18:29 Penicillins Allergy Swelling Verified 09/28/19 18:29 sertraline [From Zoloft] Allergy Rapid Verified 09/28/19 18:29 Heart Rate shellfish derived [Shellfish] Allergy Unknown Verified 09/28/19 18:29 Sulfa (Sulfonamide Allergy Swelling Verified 09/28/19 18:29 Antibiotics) Review of Systems ROS Statement: Those systems with pertinent positive or pertinent negative responses have been documented in the HPI. ROS Other: All systems not noted in ROS Statement are negative. Past Medical History Past Medical History: Asthma, CVA/TIA, Fibromyalgia, GERD/Reflux, Hypertension Additional Past Medical History / Comment(s): chronic pain, stomach ulcers, History of Any Multi-Drug Resistant Organisms: None Reported Past Surgical History: Section, Cholecystectomy, Orthopedic Surgery, Tonsillectomy Additional Past Surgical History / Comment(s): neck,left hand Past Psychological History: Anxiety Smoking Status: Current every day smoker Past Alcohol Use History: None Reported Past Drug Use History: Marijuana General Exam Limitations: no limitations General appearance: alert, in no apparent distress, other (Physical well- developed, well-nourished adult female patient in mild distress related to pain. Vital signs upon presentation are temperature is 98.6F, pulse 124, respirations 20, blood pressure 169/89, pulse ox 98% on room air.) Eye exam: Present: normal appearance, PERRL, EOMI. Absent: scleral icterus, conjunctival injection, periorbital swelling ENT exam: Present: normal exam, normal oropharynx, mucous membranes moist Respiratory exam: Present: normal lung sounds bilaterally. Absent: respiratory distress, wheezes, rales, rhonchi, stridor Cardiovascular Exam: Present: regular rate, normal rhythm, normal heart sounds. Absent: systolic murmur, diastolic murmur, rubs, gallop, clicks Extremities exam: Present: normal inspection, full ROM, normal capillary refill, other (Skin the left arm is pink, warm, dry. Cap refills less than 3 seconds. Radial pulses 2+ and equal bilaterally. Strength to the left hand is 3/5.). Absent: tenderness, pedal edema, joint swelling, calf tenderness Neurological exam: Present: alert, oriented X3, CN II-XII intact Psychiatric exam: Present: normal affect, normal mood Skin exam: Present: warm, dry, intact, normal color. Absent: rash Course Vital Signs 09/28/19 09/28/19 18:26 20:00 Temperature 98.6 F 97.7 F Pulse Rate 124 H 96 Respiratory 20 18 Rate Blood Pressure 169/89 146/90 O2 Sat by Pulse 98 97 Oximetry Medical Decision Making - Medical Decision Making 44-year-old female patient presents to the emergency department today for evaluation of left shoulder and neck pain. Physical examination is unremarkable. Neurovascular status is intact. Patient symptoms are consistent with cervical radiculopathy and chronic pain syndrome. She does have MRI and computed tomography scan ordered by her neurosurgeon. She does have follow-up scheduled. She'll be given prescription for Orla and prednisone. She'll also be given prescription for Neurontin for nerve pain. Dr. Hinton over to evaluate the patient due to her not being happy with the care she is receiving. She is instructed to follow-up with her neurosurgeon for further evaluation as soon as possible. Return parameters were discussed in detail. She verbalizes understanding and agrees with this plan. Disposition Clinical Impression: Chronic shoulder pain, Chronic neck pain Disposition: HOME SELF-CARE Condition: Good Instructions (If sedation given, give patient instructions): Shoulder Pain (ED), Neck Pain (ED) Additional Instructions: Complete steroids for decrease of inflammation and pain. Take medication sparingly for severe pain only. Follow up for your outpatient tests as soon as possible. Return to the emergency department for any new, worsening, or concerning symptoms. Prescriptions: Gabapentin [Neurontin] 300 mg PO BID #14 cap Hydrocodone/Acetaminophen [Orla 10-325] 1 tab PO Q6H PRN 3 Days #12 tab PRN Reason: Pain predniSONE 50 mg PO DAILY #5 tab Is patient prescribed a controlled substance at d/c from ED?: No Referrals: None,Stated [Primary Care Provider] - 1-2 days Time of Disposition: 18:56
[2019-09-28 20:09] VITALS: BP 146/90; PULSE 96; RESP 18; TEMP 97.7
[2019-09-28] MEDS ORDERED: GABAPENTIN 300 MG CAP PO STA (20:24)
== END 2019-09-28 21:35 | disposition home or self-care (01) ==
LOC: EC 17:41
DX: G89.29 Other chronic pain (principal); M25.512 Pain in left shoulder; M54.2 Cervicalgia; M79.602 Pain in left arm; J45.909 Unspecified asthma, uncomplicated; I10 Essential (primary) hypertension; F17.200 Nicotine dependence, unspecified, uncomplicated; Z88.0 Allergy status to penicillin; Z91.048 Other nonmedicinal substance allergy status; Z91.030 Bee allergy status; Z88.1 Allergy status to other antibiotic agents; Z88.8 Allergy status to other drugs, medicaments and biological substances; Z88.2 Allergy status to sulfonamides; Z91.013 Allergy to seafood; Z86.73 Personal history of transient ischemic attack (TIA), and cerebral infarction without residual deficits
CPT/HCPCS: 99283; 96372 ×2; J2270; J1885; S0119; J7512